=== PATIENT | female | born 1980 | race Caucasian/White ===

== ENCOUNTER 2021-03-15 02:30 | Emergency (ER) | payer OTHER ==
[~2021-03-15] VITALS: Ht 170.2 cm; Wt 93.0 kg
[~2021-03-15 02:30] MED LIST: CODE1CAP2 PO; TRAMADOL; [UNRECOGNIZED DRUG - OTHER]
[2021-03-15] MEDS ORDERED: DIPHENHYDRAMINE 50 MG/ML, 1ML IVPush ONE (03:00)
[2021-03-15] MEDS ORDERED: PROCHLORPERAZINE 5 MG/ML, 2ML IVPush ONE (03:00)
[2021-03-15] MEDS ORDERED: DIPHENHYDRAMINE 50 MG/ML, 1ML ONE (03:00)
[2021-03-15] MEDS ORDERED: METOCLOPRAMIDE 5 MG/ML, 2ML ONE (03:00)
[2021-03-15] MEDS ORDERED: KETOROLAC 30 MG/1 ML IVPush ONE (03:00)
[2021-03-15] MEDS ORDERED: PROCHLORPERAZINE 5 MG/ML, 2ML ONE (03:00)
[2021-03-15] MEDS ORDERED: SODIUM CHLORIDE FLUSH 10ML SYR IVF ONE (03:00)
[2021-03-15] MEDS ORDERED: SODIUM CHLORIDE 0.9% 1,000ML IVBOLUS ONE (03:00)
--- NOTE | 2021-03-15 03:00 | NUR ---
pt came into ed this am due to a LUNA <24hr, +N/V. HX of migraines but states "this one is way worse than normal". pt nad, patient is resting comfortably in bed. Bed in lowest, rails engaged, call light on lap. Vital Signs within normal limits. WCTM.
[2021-03-15] MEDS ORDERED: KETOROLAC 30 MG/1 ML ONE (03:12)
--- NOTE | 2021-03-15 03:52 | NUR ---
pt medicated per oct, nad, appears more comfortable at this time, states her pain is decreased. resting with lights dimmed for comfort, wctm. SO at bs
[2021-03-15 04:10] VITALS: BP 136/83
--- NOTE | 2021-03-15 04:10 | NUR ---
Patient/Spouse given discharge instructions and they have confirmed that they understand the instructions. Patient ambulatory with steady gait. NAD, all questions answered appropriately, denies additional needs at this time. No personal belongings left in room after discharge.
== END 2021-03-15 04:40 | disposition home or self-care (01) ==
LOC: ED 04:35
DX: G43.709 Chronic migraine without aura, not intractable, without status migrainosus (principal); R11.2 Nausea with vomiting, unspecified; R94.31 Abnormal electrocardiogram [ECG] [EKG]; Z88.2 Allergy status to sulfonamides
CPT/HCPCS: 93005; 96361; 96374; 96375; 99284; J0780; J1200; J1885; J7030